=== PATIENT | male | born 1955 | race Caucasian/White ===

== ENCOUNTER → 2017-05-22 | Outpatient (CLI) | payer BC ==
[~2017-05-22] VITALS: Ht 175.3 cm; Wt 68.2 kg
[2017-05-22] VITALS (9 sets, daily range): BP systolic 110–129; BP diastolic 71–90; PULSE 85–101
[~2017-05-22] MED LIST: LEVOXYL0.125 MG PO; TUMS SMOOTHIES750 M1 PO
[2017-05-22 13:13] LABS: INR 1.2 (0.8-3.0); PROTHROMBIN TIME 13.3 SECONDS (9.7-12.8)
== END ==
LOC: COL.RAD 12:38
PROVIDERS: Family Medicine
DX: K76.89 Other specified diseases of liver (principal)

== ENCOUNTER 2017-09-26 23:36 | Inpatient (IN) | payer BC ==
[~2017-09-26] VITALS: Ht 177.8 cm; Wt 62.4 kg
[~2017-09-26 23:36] MED LIST changes: +NATURAL MAGNES200 MG PO; +NORCO 325 MG-51 TAB PO; +PROFE180 MG PO; +TYLENOL 325MG325 MG PO
[2017-09-27] VITALS (17 sets, daily range): BP systolic 131–155; BP diastolic 74–90; PULSE 54–94; TEMP 97.3–98.2
[2017-09-27 00:29] LABS: COLLECTION METHOD CLEAN CATCH
[2017-09-27 00:36] LABS: AMORPHOUS CRYSTAL Present /uL; MUCOUS Present /lpf; PH 7 (5-8); SQUAMOUS EPITHELIAL 0-2 /hpf; URINE APPEARANCE Cloudy; URINE BACTERIA Rare /hpf; URINE BILIRUBIN Negative (NEGATIVE); URINE BLOOD Negative (NEGATIVE); URINE COLOR Yellow; URINE GLUCOSE Negative (NEGATIVE); URINE KETONE 1+ (NEGATIVE); URINE LEUKOCYTE ESTERASE Negative (NEGATIVE); URINE NITRATE Negative (NEGATIVE); URINE PROTEIN(semi-quant) Negative (NEGATIVE); URINE RBC 0-2 /hpf; URINE UROBILINOGEN Negative (NEGATIVE)
[2017-09-27 00:37] LABS: BASO % 0.1 % (0.0-2.0); EOS % 0.1 % (0-4.0); GRAN # 5.8 (1.4-6.5); GRAN % 78.5 % (42.2-75.2); HEMATOCRIT 41.7 % (42.0-52.0); HEMOGLOBIN 13.3 g/dl (13.5-18.0); LYMPH % 12.9 % (20.0-51.0); MEAN CELL VOLUME 83 fl (80.0-100.0); MEAN CORPUSCULAR HEMOGLOBIN 27 pg (27.0-31.0); MEAN CORPUSCULAR HGB CONC 32 g/dl (33.0-37.0); MEAN PLATELET VOLUME 9.6 fl (7.4-10.4); MONO # 0.6 (0.1-0.6); MONO % 7.9 % (1.7-9.3); PLATELET COUNT 249 K/mm3 (130-400); REDCELL DISTRIBUTION WIDTH-CV 25.3 % (11.5-14.5)
[2017-09-27 00:46] LABS: ALBUMIN 4.3 gm/dL (3.5-5.0); BILIRUBIN,TOTAL 0.6 mg/dL (0.0-1.0); CALCIUM 9.5 mg/dL (8.4-10.2); CREATININE, serum 0.77 mg/dL (0.66-1.25); POTASSIUM 3.8 mmol/L (3.4-5.0); TOTAL PROTEIN 7.5 gm/dL (6.4-8.2)
[2017-09-27 01:06] LABS: MAGNESIUM 2.2 mg/dL (1.6-2.3); PHOSPHOROUS 3.5 mg/dL (2.5-4.5)
[2017-09-27 07:02] LABS: BASO % 0.2 % (0.0-2.0); EOS % 0.2 % (0-4.0); GRAN # 4.1 (1.4-6.5); LYMPH # 1.3 (1.2-3.4); MEAN CELL VOLUME 84 fl (80.0-100.0); MEAN CORPUSCULAR HGB CONC 32 g/dl (33.0-37.0); MEAN PLATELET VOLUME 10.4 fl (7.4-10.4); MONO # 0.7 (0.1-0.6); MONO % 11.3 % (1.7-9.3); PLATELET COUNT 237 K/mm3 (130-400); RED BLOOD COUNT 4.13 M/mm3 (4.20-5.60); REDCELL DISTRIBUTION WIDTH-CV 24.9 % (11.5-14.5)
[2017-09-27 07:11] LABS: CALCIUM 8.6 mg/dL (8.4-10.2); CREATININE, serum 0.7 mg/dL (0.66-1.25); HEMATOCRIT 34.6 % (42.0-52.0); HEMOGLOBIN 11.1 g/dl (13.5-18.0); MEAN CORPUSCULAR HEMOGLOBIN 27 pg (27.0-31.0); POTASSIUM 3.6 mmol/L (3.4-5.0)
[2017-09-28 02:00] VITALS: BP 143/75; PULSE 96; TEMP 97.8
[2017-09-28 06:00] VITALS: BP 117/64; PULSE 63; TEMP 96.7
[2017-09-28 09:21] VITALS: BP 123/65; PULSE 67
[2017-09-28 13:56] VITALS: BP 121/78; PULSE 61; TEMP 98.4
[2017-09-28 17:28] VITALS: BP 135/74; PULSE 62; TEMP 98.1
[2017-09-28 20:00] VITALS: BP 119/71; PULSE 74; TEMP 98.2
[2017-09-29 02:28] VITALS: BP 117/72; PULSE 96; TEMP 97.8
[2017-09-29 05:48] VITALS: BP 113/68; PULSE 44; TEMP 97.6
[2017-09-29 09:41] VITALS: BP 133/74; PULSE 49; TEMP 98.2
[2017-09-29 13:05] VITALS: BP 134/66; PULSE 97; TEMP 98.2
[2017-09-29 17:30] VITALS: BP 147/80; PULSE 60; TEMP 98.5
[2017-09-29 22:15] VITALS: BP 104/55; PULSE 63; TEMP 98.5
[2017-09-30 01:47] VITALS: BP 139/78; PULSE 52; TEMP 98.1
[2017-09-30 05:12] VITALS: BP 147/80; PULSE 49; TEMP 98.5
[2017-09-30 06:24] LABS: BASO % 0.5 % (0.0-2.0); EOS # 0.1 (0.0-0.7); GRAN # 3.1 (1.4-6.5); GRAN % 50.8 % (42.2-75.2); LYMPH # 1.9 (1.2-3.4); LYMPH % 31.3 % (20.0-51.0); MEAN CELL VOLUME 86 fl (80.0-100.0); MEAN CORPUSCULAR HGB CONC 31 g/dl (33.0-37.0); MEAN PLATELET VOLUME 10.2 fl (7.4-10.4); MONO % 16.1 % (1.7-9.3); PLATELET COUNT 183 K/mm3 (130-400); RED BLOOD COUNT 3.97 M/mm3 (4.20-5.60); REDCELL DISTRIBUTION WIDTH-CV 24.8 % (11.5-14.5)
[2017-09-30 06:38] LABS: CALCIUM 8.3 mg/dL (8.4-10.2); CREATININE, serum 0.66 mg/dL (0.66-1.25); POTASSIUM 3.5 mmol/L (3.4-5.0)
[2017-09-30 06:42] LABS: HEMOGLOBIN 10.5 g/dl (13.5-18.0); MEAN CORPUSCULAR HEMOGLOBIN 26 pg (27.0-31.0)
[2017-09-30 10:08] VITALS: BP 143/87; PULSE 69; TEMP 98.6
[2017-09-30 14:00] VITALS: BP 138/84; PULSE 69; TEMP 97.6
[2017-09-30 17:35] VITALS: BP 132/85; PULSE 77; TEMP 98.8
[2017-09-30 22:00] VITALS: BP 135/89; PULSE 88; TEMP 98.3
[2017-10-01 06:00] VITALS: BP 144/89; PULSE 64; TEMP 97.8
[2017-10-01 10:00] VITALS: BP 143/93; PULSE 102; TEMP 98.2
[2017-10-01] MEDS ORDERED: NORCO 325 MG-51 TAB PO (11:50)
== END 2017-10-01 13:05 | disposition home or self-care (01) | DRG 330 ==
LOC: COL.ER 23:36 → SURG 09-27 00:47
PROVIDERS: Emergency Medicine; Internal Medicine Gastroenterology; Nurse Practitioner Family; Surgery
PROC: 0D1M4Z4 Bypass Descending Colon to Cutaneous, Percutaneous Endoscopic Approach (ICD-10-PCS; 2017-09-27)
PROC: 0DJD8ZZ Inspection of Lower Intestinal Tract, Via Natural or Artificial Opening Endoscopic (ICD-10-PCS; 2017-09-27)
PROC: 0DBN4ZZ Excision of Sigmoid Colon, Percutaneous Endoscopic Approach (ICD-10-PCS; principal; 2017-09-27 13:15)
DX: C18.7 Malignant neoplasm of sigmoid colon (principal); C78.7 Secondary malignant neoplasm of liver and intrahepatic bile duct; C78.6 Secondary malignant neoplasm of retroperitoneum and peritoneum; Z66 Do not resuscitate; C78.01 Secondary malignant neoplasm of right lung; C78.02 Secondary malignant neoplasm of left lung; E87.1 Hypo-osmolality and hyponatremia; R64 Cachexia; Z68.1 Body mass index [BMI] 19.9 or less, adult; D64.9 Anemia, unspecified
CPT/HCPCS: 99223-AI; 99231-AI; 99232-AI; 99239; A4314; C9113; J0694; J1100; J1170; J1885; J2250; J2270; J2300; J2405; J2704; J2710; J3010; J7030; J7120

== ENCOUNTER → 2018-01-28 | Outpatient (CLI) | payer BC | LOC: COL.RAD 08:49 | DX: R93.8 Abnormal findings on diagnostic imaging of other specified body structures (principal); Z85.038 Personal history of other malignant neoplasm of large intestine | CPT/HCPCS: A9585 ==